=== PATIENT | female | born 1955 | race Caucasian/White ===

== ENCOUNTER 2022-02-13 05:35 | Inpatient (IN) | payer MEDICARE, BC ==
[2022-02-04 11:11] LABS: BASOPHILS # (AUTO) 0.1 X10'3 (0-0.2); BASOPHILS % (AUTO) 0.7 % (0-1); EOSINOPHILS # (AUTO) 0.1 X10'3 (0-0.9); EOSINOPHILS % (AUTO) 1.8 % (0-6); LYMPHOCYTES # (AUTO) 3.3 X10'3 (1.1-4.8); LYMPHOCYTES % (AUTO) 43.5 % (21-51); MEAN CORPUSCULAR HEMOGLOBIN 30.7 PG (27.0-31.0); MEAN CORPUSCULAR HGB CONC 34.2 g/dL (33.0-36.5); MEAN CORPUSCULAR VOLUME 89.8 FL (78-98); MEAN PLATELET VOLUME 7.4 FL (7.4-10.4); MONOCYTES # (AUTO) 0.4 X10'3 (0-0.9); MONOCYTES % (AUTO) 5.5 % (2-12); NEUTROPHILS # (AUTO) 3.6 X10'3 (1.8-7.7); NEUTROPHILS % (AUTO) 48.5 % (42-75); PRE OP HEMATOCRIT 47.9 % (35.0-45.0); PRE OP HEMOGLOBIN 16.4 g/dL (12.0-16.0); PRE OP PLATELET COUNT 286 X10'3 (140-440); RED BLOOD COUNT 5.33 X10'6 (4.20-5.60); RED CELL DISTRIBUTION WIDTH 13.4 % (11.5-14.5)
[2022-02-04 11:21] LABS: ALBUMIN 3.9 G/DL (3.4-5.0); ALBUMIN/GLOBULIN RATIO 1.1 (1.1-1.5); ALKALINE PHOSPHATASE 92 IU/L (46-116); BLOOD UREA NITROGEN 16 MG/DL (7-18); BUN/CREATININE RATIO 21.3 (6.6-38.0); CALCIUM 8.8 MG/DL (8.5-10.1); CHLORIDE 104 MMOL/L (99-107); CREATININE 0.75 MG/DL (0.40-0.90); PRE OP ALT 35 U/L (30-65); PRE OP ANION GAP 8 (8-16); PRE OP AST 21 U/L (10-37); PRE OP BILIRUB, TOTAL 0.6 MG/DL (0.0-1.0); PRE OP GLUCOSE 99 MG/DL (70-104); PRE OP POTASSIUM 4.1 MMOL/L (3.4-5.1); PRE OP SODIUM 139 MMOL/L (135-145); TOTAL CARBON DIOXIDE 26.9 MMOL/L (24-32); TOTAL PROTEIN 7.6 G/DL (6.4-8.2); eGFR 78 ML/MIN
[2022-02-13] VITALS (23 sets, daily range): BP systolic 129–164; BP diastolic 64–98
[~2022-02-13] VITALS: Ht 175.3 cm; Wt 98.6 kg
[~2022-02-13 05:35] MED LIST: HYDR12.55 PO; LISI20TA28 PO; XAL0.005OS EACHEYE; ceFAZolin inj. 2,000 MG in dextrose 5%-water 100 ML IV ONE; famotidine 20mg tablet PO ONE; ringers solution, lacted 1,000 ML IV SCH; tranexamic acid inj. 1,000 MG in normal saline IV soln 100ML IV ONE; vancomycin 1,500 MG in NS 300ml IV soln IV ONE
[2022-02-13] MEDS ORDERED: ketorolac trometh. 30mg/ml inj. ONE (06:49)
[2022-02-13] MEDS ORDERED: morphine 10mg/ml inj. ONE (06:50)
[2022-02-13] MEDS ORDERED: vancomycin 1,000mg inj ONE (06:50)
[2022-02-13] MEDS ORDERED: ROPIVAcaine 0.5% (5mg/ml) 30ml vial ONE ×2 (06:50→06:51)
[2022-02-13] MEDS ORDERED: fentaNYL/PF 50MCG/1 ML 2ML syringe ONE (07:26)
[2022-02-13] MEDS ORDERED: MIDAZolam 1 MG/ML 5ML VIAL ONE (07:28)
[2022-02-13] MEDS ORDERED: epiNEPHrine 1 mg/ml 30ml MDV ONE (08:37)
[2022-02-13] MEDS ORDERED: epiNEPHrine 1 mg/ml inj ONE (08:39)
[2022-02-13] MEDS ORDERED: propofol inj 20 ML IV ONE (09:01)
[2022-02-13] MEDS ORDERED: LIDOcaine 1%/PF 5ML 10 MG/ML VIAL ONE (09:01)
[2022-02-13] MEDS ORDERED: cloNIDine hcl/PF 100mcg/ml inj ONE (09:17)
[2022-02-13] MEDS ORDERED: ringers solution, lacted 1,000 ML IV SCH (09:35)
[2022-02-13] MEDS ORDERED: proCHLORperazine 10 MG/2 ml inj IV PRN (09:35)
[2022-02-13] MEDS ORDERED: morphine 2 MG/ML inj. syringe IV PRN (09:35)
[2022-02-13] MEDS ORDERED: morphine 4 MG/ML inj SYRINge IV PRN (09:35)
[2022-02-13] MEDS ORDERED: meperidine/PF 25mg/ml syringe IV PRN ×2 (09:35)
[2022-02-13] MEDS ORDERED: ondansetron/PF 4mg/2ml inj IV PRN ×2 (09:35→11:00)
[2022-02-13] MEDS ORDERED: ROPIVAcaine 0.2% (10 MG/5 ML) BOLUS INJECTION ADDCANAL PRN (09:50)
[2022-02-13] MEDS ORDERED: HYDROmorphone 1 mg/ml syringe IV PRN (11:00)
[2022-02-13] MEDS ORDERED: oxyCODONE IR 5mg (immed. release) tablet PO PRN (11:00)
[2022-02-13] MEDS ORDERED: acetaminophen 325mg tablet PO PRN (11:00)
[2022-02-13] MEDS ORDERED: diphenhydrAMINE 25mg capsule PO PRN ×2 (11:00)
[2022-02-13] MEDS ORDERED: HYDROmorphone inj. 0.5 MG/0.5 ML DISP.SYRIN IV PRN (11:00)
[2022-02-13] MEDS ORDERED: magnesium hydroxide 30ml (MOM) UD suspension PO PRN (11:00)
[2022-02-13] MEDS ORDERED: bisacodyl 10mg suppository rectal RC PRN (11:00)
[2022-02-13] MEDS ORDERED: naloxone 0.4 mg/ml inj IV PRN (11:00)
[2022-02-13] MEDS: ROPIVAcaine 0.2%/PF PUMP/bolus 545 ML ADDCANAL SCH (11:20)
[2022-02-13] MEDS: meperidine/PF 25mg/ml syringe IV PRN ×2 (11:20→11:33)
[2022-02-13] MEDS ORDERED: acetaminophen 1,000mg/100ml IV 100 ML IV ONE (11:55)
[2022-02-13] MEDS: gabapentin 300mg capsule PO SCH ×2 (12:18→20:31)
[2022-02-13] MEDS: oxyCODONE IR 5mg (immed. release) tablet PO PRN ×2 (12:18→23:55)
[2022-02-13] MEDS ORDERED: tranexamic acid inj. 980 MG in normal saline 100ml IV soln 90.2 ML IV ONE (13:43)
[2022-02-13] MEDS: potassium cl 20mEq in 1/2 NS 1,000 ML IV SCH (14:51)
[2022-02-13] MEDS: acetaminophen 325mg tablet PO SCH ×2 (14:52→20:31)
[2022-02-13] MEDS: ceFAZolin/D5W- 1GM premix 50 ML IV SCH ×2 (16:51→23:51)
[2022-02-13] MEDS: ketorolac trometh. 30mg/ml inj. IV SCH ×2 (16:51→23:49)
[2022-02-13] MEDS ORDERED: vancomycin/NS 1 GM ADD-VANTAGE 250 ML IV SCH (20:00)
[2022-02-13] MEDS ORDERED: sennosides 8.6mg tablet PO SCH (21:00)
[2022-02-13] MEDS ORDERED: lisinopril 20mg tablet PO SCH (21:00)
[2022-02-13] MEDS ORDERED: latanoprost 0.005% 2.5ml ophthalmic drops EACHEYE SCH (21:00)
[2022-02-14] MEDS: potassium cl 20mEq in 1/2 NS 1,000 ML IV SCH ×3 (01:27→11:00)
[2022-02-14] MEDS: acetaminophen 325mg tablet PO SCH ×2 (01:28→08:52)
[2022-02-14 02:00] VITALS: BP 134/70
[2022-02-14] MEDS: oxyCODONE IR 5mg (immed. release) tablet PO PRN (05:24)
[2022-02-14 06:00] VITALS: BP 131/77
[2022-02-14] MEDS: ketorolac trometh. 30mg/ml inj. IV SCH (08:00)
[2022-02-14] MEDS ORDERED: HYDROchlorothiazide 12.5mg capsule PO SCH (08:00)
[2022-02-14] MEDS ORDERED: enoxaparin 40mg/0.4ml syringe SQ SCH (08:00)
[2022-02-14] MEDS: gabapentin 300mg capsule PO SCH ×2 (08:50→13:14)
[2022-02-14 10:00] VITALS: BP 130/70
[2022-02-14] MEDS ORDERED: HYDROcodone/acetaminophen 10/325mg tab PO PRN ×2 (10:50→12:45)
[2022-02-14] MEDS ORDERED: HYDROcodone/acetaminophen 5mg/325mg tablet PO ONE (13:06)
[2022-02-14] MEDS: ROPIVAcaine 0.2%/PF PUMP/bolus 545 ML ADDCANAL SCH (13:15)
[2022-02-14] MEDS ORDERED: celeCOXIB 100mg capsule PO SCH (20:00)
[2022-02-15] MEDS ORDERED: acetaminophen 325mg tablet PO PRN (11:00)
== END 2022-02-14 14:46 | disposition home or self-care (01) | DRG 470 ==
LOC: PAS IN 05:35 → ORTHO 4S 12:55
PROVIDERS: ADMIT Orthopaedic Surgery; ATTEND Orthopaedic Surgery
PROC: 3E0T3BZ Introduction of Anesthetic Agent into Peripheral Nerves and Plexi, Percutaneous Approach (ICD-10-PCS; 2022-02-13)
PROC: 3E0T33Z Introduction of Anti-inflammatory into Peripheral Nerves and Plexi, Percutaneous Approach (ICD-10-PCS; 2022-02-13)
PROC: 0SRC069 Replacement of Right Knee Joint with Oxidized Zirconium on Polyethylene Synthetic Substitute, Cemented, Open Approach (ICD-10-PCS; principal; 2022-02-13 07:32)
DX: M17.11 Unilateral primary osteoarthritis, right knee (principal); I10 Essential (primary) hypertension; Z96.652 Presence of left artificial knee joint; E66.9 Obesity, unspecified; Z68.32 Body mass index [BMI] 32.0-32.9, adult; Z79.899 Other long term (current) drug therapy
CPT/HCPCS: 36415; 73560; 80053; 82948; 85025; 87081; 87811; 93005; 97110; 97116; 97161; 97530; A4215; A6253; A6258; A6446; A6449; A7000; C1713; C1758; C1776; C9250; G0378; J0131; J0171; J0690; J0735; J1650; J1885; J2175; J2250; J2274; J2704; J2795; J3010; J3370; J3480; J3490; J7040; J7060; J7120